=== PATIENT | male | born 1990 | race Caucasian/White ===

== ENCOUNTER 2017-04-04 16:12 | Emergency (ER) | payer MEDICAID ==
[~2017-04-04] VITALS: Ht 170.2 cm; Wt 72.8 kg
[2017-04-04 16:22] VITALS: BP 119/70
== END 2017-04-04 16:57 | disposition left against medical advice (07) ==
LOC: MED 16:12
DX: R09.81 Nasal congestion (principal); Z53.21 Procedure and treatment not carried out due to patient leaving prior to being seen by health care provider

== ENCOUNTER 2019-11-16 23:40 | Emergency (ER) | payer SELFPAY ==
[~2019-11-16] VITALS: Ht 170.2 cm; Wt 73.9 kg
[2019-11-16 23:45] VITALS: BP 113/57
--- NOTE | 2019-11-16 23:52 | NUR ---
PT AMBULATED TO ER BED 04
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
[2019-11-17] MEDS ORDERED: LIDOCAINE/EPI 1% 1:100000 20 ML VIAL INJ ONE (00:05)
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
--- NOTE | 2019-11-17 00:08 | NUR ---
ERMD AT BEDSIDE.
[2019-11-17] MEDS ORDERED: FLUORESCEIN OPTH STRIP 1 MG OP ONE (00:20)
[2019-11-17] MEDS ORDERED: TETRACAINE HCL/PF 0.5% OPTH 4 ML BTL OP ONE (00:20)
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
--- NOTE | 2019-11-17 01:23 | NUR ---
ERMD AT BEDSIDE PERFORMING SUTURES.
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
--- NOTE | 2019-11-17 02:20 | NUR ---
[facility] AT BEDSIDE.
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
[2019-11-17 03:00] VITALS: BP 110/60
== END 2019-11-17 03:00 | disposition home or self-care (01) ==
LOC: MED 23:40
DX: S02.31XA Fracture of orbital floor, right side, initial encounter for closed fracture (principal); S05.41XA Penetrating wound of orbit with or without foreign body, right eye, initial encounter; X58.XXXA Exposure to other specified factors, initial encounter; Y93.89 Activity, other specified; Y92.89 Other specified places as the place of occurrence of the external cause; Y99.8 Other external cause status
CPT/HCPCS: 12011; 70450; 70486; 90471; 90715; 99285; J2001